=== PATIENT | male | born 1980 | race Asian ===

== ENCOUNTER 2016-04-24 05:18 | Day surgery (SDC) | payer OTHER ==
[~2016-04-24] VITALS: Ht 172.7 cm; Wt 68.0 kg
[~2016-04-24 05:18] MED LIST: ADVIL200 MG PO; BACLOFEN20 M1 PO; BISCOLAX10 MG/SUPP RC; COLACE100 MG PO; HYDROCODON-ACE1 EAC9 PO; HYDROCODONE-APA1 TAB PO; IBUPROFEN200 MG PO; LEVAQUIN750 MG PO; MOBIC7.5 MG PO; MULTIGEN CAPLET1 TAB PO; NEURONTIN 300300 MG PO; OXYBUTYNIN CHLOR5 MG PO; PRAVASTATIN SOD10 MG PO; TOPROL XL50 MG PO; TRIPLE ANTIB28.35 GM TP; TRIPLE ANTIBI28.4 GM TP; ZANAFLEX4 MG PO
[2016-04-24] MEDS ORDERED: PAXIL30 MG PO (06:50)
[2016-04-24] MEDS ORDERED: VALIUM5 MG PO (06:50)
[2016-04-24 06:57] VITALS: BP 114/78; Ht 172.7 cm; Wt 68.0 kg
[2016-04-24 07:04] LABS: BASOPHILS 0.5 % (0.0-2.0); EOSINOPHILS 9.4 % (0-7); HEMATOCRIT 39.5 % (42.0-54.0); HEMOGLOBIN 12.6 g/dL (13.5-17.5); IMMATURE GRANULOCYTES 0.6 % (0-5); LYMPHOCYTES 17.8 % (15-50); MCHC 31.9 g/dL (31.0-37.0); MEAN PLATELET VOLUME 10.4 fL (7.4-10.4); MONOCYTES 8.1 % (2-11); NEUTROPHILS 63.6 % (40-80); RBC 4.34 10x6/uL (4.20-6.10); RDW 13.1 % (11.5-14.5); WBC 8.4 10x3/uL (4.8-10.8)
[2016-04-24 07:10] LABS: PLATELET COUNT 219 10x3/uL (130-400)
[2016-04-24 07:15] LABS: CALC OSMOLALITY 276 mosm/kg (275-300); CALCIUM 9.5 mg/dL (8.5-10.1); CARBON DIOXIDE 32.3 mmol/L (21.0-32.0); CHLORIDE - SERUM 103 mmol/L (98-107); CREATININE - SERUM 0.8 mg/dL (0.6-1.3); GLUCOSE 90 mg/dL (74-106); POTASSIUM - SERUM 4.3 mmol/L (3.5-5.1); SODIUM 140 mmol/L (136-145); UREA NITROGEN 7 mg/dL (7-18); eGFR NON AFRICAN AMERICAN > 90 mL/min (90-120)
--- NOTE | 2016-04-24 10:45 | NUR ---
VANCOMYCIN 1G INFUSING VIA DIALAFLOW.
--- NOTE | 2016-04-24 13:50 | NUR ---
HAVE BEEN AWAITING NOTIFICATION THAT WOUND VAC HAS BEEN ARRANGED AND DELIVERY IS IMMINENT AT THE [facility]. CALL RECEIVED FROM NURSE CROFT AT [facility], STATES THAT [facility] REP HAS INFORMED HER THAT WOUND VAC IS EN ROUTE
--- NOTE | 2016-04-24 14:10 | NUR ---
PIV DC'D WITH TIP INTACT, PATIENT DRESSED SELF IN ADC CLOTHING. PATIENT IS WITHOUT COMPLAINTS, WOUND VAC DRESSING C/D/I, TUBING CLAMPED, PATIENT DISCHARGED VIA WHEELCHAIR WITH LONG TERM GUARDS
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
--- NOTE | 2016-05-09 10:18 | OP ---
PATIENT NAME: ZEKE HENDRICKS MEDICAL RECORD: [id number] :79 LOCATION:[facility] ADMISSION DATE: SURGEON: SALOMÓN DEE MD DATE OF OPERATION: 04/24/2016 PREOPERATIVE DIAGNOSIS: Stage IV decubitus ulcer of the sacrum. Please see dimensions below. POSTOPERATIVE DIAGNOSIS: Stage IV decubitus ulcer of the sacrum. Please see dimensions below. PROCEDURE: Excisional debridement of stage IV decubitus ulcer of the sacrum with placement of a wound VAC. The dimensions of the debridement, including margins, measured 6.2 cm in the cephalad caudad dimension as well as 5.2 cm in the medial lateral dimension. This was a midline wound. This was cavitary. I debrided skin, subcutaneous tissue, granulation tissue as well as periosteum of the sacrum. There is undermining of up to 2.0 cm from the 9 o'clock to the 3 o'clock. There was no tunneling. There was undermining from 5-7 o'clock of 1.0 cm. This was a sharp debridement utilizing a scalpel. Placement of wound VAC. OPERATIVE COURSE: The patient was conveyed to the operating room electively on 04/24/2016. General anesthesia was induced by the anesthesia staff. The patient was otherwise positioned prone. The back and buttocks were sterilely prepped and draped. The debridement was carried out utilizing a scalpel as well as with electrocautery. I debrided back to healthy bleeding viable tissue. There was a great deal of exuberant granulation tissue present. Once the sharp debridement had been carried out, I created submucosal flaps sharply in all directions. This was to allow for a quicker closure utilizing the wound VAC device. I irrigated with hydrogen peroxide. Meticulous hemostasis was achieved with the electrocautery. A black wound VAC sponge was then applied to the oval defect. The cellophane-type dressings were applied over the wound VAC sponge. The cellophane-type dressings were then scored. A wound VAC disc was applied and this was attached to suction. The suction held a good "raisin" indicating that the device held suction without significant air leakage. The patient was then extubated and conveyed to the post-anesthesia care unit where he was in stable condition. I will plan that he will be dismissed back to the halfway with the wound VAC to be changed 3 times a week. My recommendation would be 125 mmHg suction and the wound VAC to be changed every Saturday, Saturday, and Saturday. The first wound VAC change could be on Saturday. I did not identify any osteomyelitis. I do not think the patient necessarily would require intravenous antibiotics as I noted no definite evidence of infection. TRANSINT:[id number] Voice Confirmation ID: [id number] DOCUMENT ID: [id number] OPERATIVE REPORT [id number] ZEKE HENDRICKS, SALOMÓN SEGAL at 1018 CC: SALOMÓN CARRION MD, JACOB CORTÉS MD, JESUSITA CURTIS MD and [id number] L DICTATION DATE: 04/24/16 1049 INVENTORY CONTROL COORDINATOR: 04/24/16 1146 [facility] 04/24/[address] [address]
== END 2016-04-24 14:10 | disposition home or self-care (01) ==
LOC: D.OPS 05:18
PROVIDERS: Anesthesiology
DX: L89.154 Pressure ulcer of sacral region, stage 4 (principal); G82.20 Paraplegia, unspecified; Z98.1 Arthrodesis status; G40.909 Epilepsy, unspecified, not intractable, without status epilepticus; K21.9 Gastro-esophageal reflux disease without esophagitis; I10 Essential (primary) hypertension; Z87.891 Personal history of nicotine dependence

== ENCOUNTER 2017-07-01 05:49 | Day surgery (SDC) | payer OTHER ==
[~2017-07-01] VITALS: Ht 172.7 cm; Wt 68.0 kg
--- NOTE | ~2017-07-01 | OP ---
PATIENT NAME: ZEKE HENDRICKS MEDICAL RECORD: [id number] :79 LOCATION:D.OPS ADMISSION DATE: SURGEON: SALOMÓN DEE MD DATE OF OPERATION: 07/01/2017 ADDENDUM Please state that the heel debridement included skin and subcutaneous tissue as well as granulation tissue. The sacral debridement included skin and subcutaneous tissue as well as the sacral decubitus ulcer and periosteum of the sacrum. I debrided back to viable bleeding tissue. TRANSINT:[id number] Voice Confirmation ID: [id number] DOCUMENT ID: [id number] SALOMÓN DEE MD at 1158 CC: [id number] DICTATION DATE: 07/01/17 1131 SHORT PIECE HANDLER: 07/01/17 1238 [facility] 07/01/17 [place] [id number] [place] [address]
--- NOTE | ~2017-07-01 | OP ---
PATIENT NAME: ZEKE HENDRICKS MEDICAL RECORD: [id number] :79 LOCATION:[facility] ADMISSION DATE: SURGEON: SALOMÓN DEE MD DATE OF OPERATION: 07/01/2017 PREOPERATIVE DIAGNOSES: 1. Open sacral decubitus ulcer. 2. Right heel decubitus ulcer. POSTOPERATIVE DIAGNOSES: 1. Open sacral decubitus ulcer. 2. Right heel decubitus ulcer. Please see dimensions below. PROCEDURE: 1. Excisional debridement of sacral decubitus ulcer with intermediate closure. The dimensions of the excision, including margins, measured 9.0 in the anterior posterior dimension and then 6.5 cm in lateral dimension. 2. Excisional debridement without closure of the heel decubitus ulcer. The dimensions of the debridement, including margins, measured 3.2 cm in the medial lateral dimension and 1.4 in the anterior-posterior dimension. ENGINE REPAIR SUPERVISOR: None. BLOOD LOSS: Less than 50 cc. ANESTHESIA: General. COMPLICATIONS: None. The risks, possible complications and alternatives to procedure were explained to the patient. He elects to proceed. OPERATIVE COURSE: The patient was conveyed to the operating room electively on 07/01/2017. General anesthesia was induced by the anesthesia staff. The patient was positioned in the prone position. The perineum and the right heel were sterilely prepped and draped. The right heel decubitus ulcer was debrided down to but not including the periosteum. The debridement was carried out utilizing curettes. I noted no evidence of infection. The dimensions of the debridement are included above. I debrided back to bleeding healthy tissue. A saline wet to dry dressing was then applied. It appears that the patient had a proctectomy and removal of his anus. The decubitus ulcer at the sacrum was cavitary. I excised the decubitus ulcer in its entirety. It went down into the sacral bone. All of the decubitus ulcer was excised. No evidence of an ongoing infection. Subcutaneous flaps were created sharply. The wound was closed in several layers. A deep layer was closed with multiple interrupted horizontal mattress 2-0 Vicryls. Subcutaneous layer was closed with multiple interrupted horizontal mattress 2-0 Vicryls. The skin was approximated with multiple interrupted vertical mattress 2-0 Vicryls. A sterile dressing was then applied. The patient was then extubated and conveyed to post-anesthesia care unit where he was in stable condition. I would continue with saline wet-to-dry dressing OPERATIVE REPORT [id number] ZEKE HENDRICKS changes to the heel decubitus ulcer and dry dressing to the sacral wound closure. TRANSINT:[id number] Voice Confirmation ID: [id number] DOCUMENT ID: [id number] SALOMÓN DEE MD at 1158 CC: [id number] DICTATION DATE: 07/01/17 1103 PRACTICING UROLOGIST: 07/01/[address] [facility] 07/01/17 [facility] [address] [place] [address]
[~2017-07-01 05:49] MED LIST changes: +PAXIL30 MG PO; +VALIUM5 MG PO
[2017-07-01 06:29] VITALS: BP 147/89; Ht 172.7 cm; Wt 68.0 kg
[2017-07-01 06:45] LABS: HEMATOCRIT 37.4 % (42.0-54.0); HEMOGLOBIN 11.7 g/dL (13.5-17.5); MCH 27.3 pg (26.0-34.0); MCHC 31.3 g/dL (31.0-37.0); MCV 87.2 fL (80.0-100.0); MEAN PLATELET VOLUME 10.1 fL (7.4-10.4); RBC 4.29 10x6/uL (4.20-6.10); RDW 14.8 % (11.5-14.5); WBC 8.6 10x3/uL (4.8-10.8)
== END 2017-07-01 12:35 | disposition home or self-care (01) ==
LOC: D.OPS 05:49
PROVIDERS: Anesthesiology
DX: L89.159 Pressure ulcer of sacral region, unspecified stage (principal); I10 Essential (primary) hypertension; K21.9 Gastro-esophageal reflux disease without esophagitis; F41.8 Other specified anxiety disorders; Z87.891 Personal history of nicotine dependence; Z01.812 Encounter for preprocedural laboratory examination

== ENCOUNTER 2017-10-04 06:09 | Day surgery (SDC) | payer OTHER ==
[~2017-10-04] VITALS: Ht 172.7 cm; Wt 63.6 kg
--- NOTE | ~2017-10-04 | OP ---
PATIENT NAME: ZEKE HENDRICKS MEDICAL RECORD: [id number] :79 LOCATION:[facility] ADMISSION DATE: SURGEON: SALOMÓN DEE MD DATE OF OPERATION: 10/04/2017 PREOPERATIVE DIAGNOSIS: Nonhealing stage IV decubitus ulcer of the sacrum, cavitary. POSTOPERATIVE DIAGNOSIS: Nonhealing stage IV decubitus ulcer of the sacrum, cavitary. PROCEDURE: Excisional debridement of stage IV cavitary decubitus ulcer of the sacrum with placement of a wound VAC. SURGEON: Salomón Dee MD PATTERN TECHNICIAN: None. BLOOD LOSS: Minimal. ANESTHESIA: General. COMPLICATIONS: None. The risks, possible complications and alternatives to procedure were explained to the patient. He elects to proceed. The discussion specifically included, but was not limited to, bleeding requiring emergency reoperation, infection, as well as the possibility that the ulcer would not heal or would require further intervention. The patient has undergone a flap procedure in the past which helped to partially heal the ulcer. DESCRIPTION OF PROCEDURE: He was conveyed to the operating room electively on 10/04/2017. General anesthesia was induced by the anesthesia staff. The patient was positioned prone. The buttocks and the lower back and the sacral area were sterilely prepped and draped. The stage IV decubitus ulcer had granulation tissue and essentially was a pseudobursa. There was a circular opening. I widened the circular opening and the excision was a sharp excision with a scalpel and it measured 2.5 x 2.6 cm included skin and subcutaneous tissue. I then took a sharp curette and performed a thorough curettage of the pseudobursa and granulation tissue. Cultures were obtained. The wound was bathed in hydrogen peroxide. I then placed a wound VAC sponge into the pseudobursa. The cellophane type dressing was applied and this was scored, and the wound VAC was attached to suction. The patient is going to be transported back to the intermediate with the wound VAC in place. If this is not successful in healing the wound, the patient may need to be referred to a plastic surgeon for another flap procedure. The patient was then extubated and conveyed to post-anesthesia care unit. TRANSINT:[id number] Voice Confirmation ID: [id number] DOCUMENT ID: [id number] OPERATIVE REPORT [id number] ELADIOZEKE SALOMÓN DEE MD at 1004 CC: [id number] DICTATION DATE: 11/02/17 1342 SUPERINTENDENT PRODUCTION: 11/02/17 1448 [facility] 10/04/17 [place] [id number] [place] [address]
[2017-10-04 06:51] LABS: BASOPHILS 0.4 % (0-2); EOSINOPHILS 5.4 % (0-7); HEMATOCRIT 43.2 % (42.0-54.0); HEMOGLOBIN 14.3 g/dL (13.5-17.5); IMMATURE GRANULOCYTES 0.2 % (0-5); LYMPHOCYTES 17.3 % (15-50); MCHC 33.1 g/dL (31.0-37.0); MCV 84.5 fL (80.0-100.0); MEAN PLATELET VOLUME 10.8 fL (7.4-10.4); MONOCYTES 7.8 % (2-11); NEUTROPHILS 68.9 % (40-80); PLATELET COUNT 256 10x3/uL (130-400); RBC 5.11 10x6/uL (4.20-6.10); RDW 14.2 % (11.5-14.5); WBC 9.9 10x3/uL (4.8-10.8)
[2017-10-04 07:00] LABS: CALC OSMOLALITY 276 mosm/kg (275-300); CALCIUM 8.9 mg/dL (8.5-10.1); CARBON DIOXIDE 28.8 mmol/L (21.0-32.0); CHLORIDE - SERUM 103 mmol/L (98-107); CREATININE - SERUM 0.7 mg/dL (0.6-1.3); GLUCOSE 106 mg/dL (74-106); POTASSIUM - SERUM 3.9 mmol/L (3.5-5.1); SODIUM 139 mmol/L (136-145); UREA NITROGEN 9 mg/dL (7-18); eGFR NON AFRICAN AMERICAN > 90 mL/min (90-120)
[2017-10-04 09:17] VITALS: BP 122/76; Ht 172.7 cm; Wt 63.6 kg
== END 2017-10-04 13:11 | disposition home or self-care (01) ==
LOC: D.OPS 06:09
PROVIDERS: Anesthesiology
DX: L89.154 Pressure ulcer of sacral region, stage 4 (principal); Z01.812 Encounter for preprocedural laboratory examination